=== PATIENT | male | born 2005 | race Caucasian/White ===

== ENCOUNTER 2023-09-24 21:03 | Emergency (ER) | payer SELFPAY ==
[~2023-09-24] VITALS: Ht 188 cm; Wt 61.2 kg
[2023-09-24] MEDS ORDERED: PENICILLIN V P500 MG PO (21:36)
[2023-09-24] MEDS ORDERED: PENICILLIN V POTASSIUM 500 MG HOME.PACK PO ONE (21:45)
[2023-09-24 21:46] VITALS: BP 141/75
== END 2023-09-24 21:46 | disposition home or self-care (01) ==
LOC: ED 21:03
DX: K02.9 Dental caries, unspecified (principal)